=== PATIENT | female | born 1955 | race Caucasian/White ===

== ENCOUNTER 2020-11-05 11:58 | Emergency (ER) | payer OTHER ==
[~2020-11-05 11:58] MED LIST: CELEXA 40MG TAB40 MG PO; CRESTOR5 MG PO; ELAVIL25 MG PO; RIZATRIPTAN10 M1 PO; SYNTHROID50 MCG PO; TOPIRAMATE ER50 MG PO
[2020-11-05 13:09] LABS: BASOPHIL 0.7 % (0-2); EOSINOPHIL 2.7 % (0-7); HGB 12.7 g/dl (12.5-16.0); LYMPHOCYTE 32.4 % (15-48); MCH 29.7 pg (25.0-31.0); MCHC 33.4 g/dL (32.0-36.0); MONOCYTE 8.4 % (0-12); MPV 12.3 fL (6.0-9.5); NEUTROPHIL 55.3 % (41-80); NRBC 0; PLT 139 K/uL (150-400); RBC 4.27 M/uL (4.20-5.40); RDW 12.7 % (11.5-14.0); WBC 5.5 K/uL (4.0-10.5)
[2020-11-05 13:28] LABS: ALBUMIN 3.5 g/dL (3.4-5.0); BILIRUBIN - TOTAL 0.3 mg/dL (0.2-1.0); BUN/CREAT RATIO (CALC) 17.8 RATIO; CREATININE 1.01 mg/dL (0.51-0.95); GLOBULIN (CALCULATION) 3.3 g/dL; TOTAL PROTEIN 6.8 g/dL (6.4-8.2)
[2020-11-05 13:38] LABS: LACTIC ACID 0.6 mmol/L (0.4-1.9)
[2020-11-05] MEDS ORDERED: BENTYL10 MG PO (14:34)
== END 2020-11-05 14:42 | disposition home or self-care (01) ==
LOC: FER 11:58
PROVIDERS: Emergency Medicine
DX: K62.5 Hemorrhage of anus and rectum (principal); R10.32 Left lower quadrant pain
CPT/HCPCS: 36415; 80053; 83605; 85025; 87040; Q9967

== ENCOUNTER → 2020-12-15 | Day surgery (SDC) | payer MEDICARE, OTHER ==
[~2020-12-15] MED LIST changes: +BENTYL10 MG PO
[2020-12-15 07:48] LABS: HCT 39.6 % (37.0-47.0); HGB 13.6 g/dl (12.5-16.0); MCHC 34.3 g/dL (32.0-36.0); MCV 87.2 fL (78.0-100.0); MPV 11.5 fL (6.0-9.5); RBC 4.54 M/uL (4.20-5.40); RDW 12.9 % (11.5-14.0); WBC 7.2 K/uL (4.0-10.5)
[2020-12-15 08:06] LABS: ALBUMIN 4.3 g/dL (3.4-5.0); BILIRUBIN - TOTAL 0.4 mg/dL (0.2-1.0); BUN/CREAT RATIO (CALC) 24.3 RATIO; CREATININE 1.03 mg/dL (0.51-0.95); GLOBULIN (CALCULATION) 3.4 g/dL; POTASSIUM 3.7 mmol/L (3.5-5.1); TOTAL PROTEIN 7.7 g/dL (6.4-8.2)
== END | disposition home or self-care (01) ==
LOC: FAS 07:21
PROVIDERS: Surgery
DX: K58.9 Irritable bowel syndrome, unspecified (principal); K63.89 Other specified diseases of intestine; G43.909 Migraine, unspecified, not intractable, without status migrainosus; E03.9 Hypothyroidism, unspecified; F32.9 Major depressive disorder, single episode, unspecified; Z79.899 Other long term (current) drug therapy; Z87.891 Personal history of nicotine dependence; Z86.010 Personal history of colon polyps; Z80.0 Family history of malignant neoplasm of digestive organs; Z20.822 Contact with and (suspected) exposure to COVID-19
CPT/HCPCS: 36415; 80053; 94667; J1100; J1610; J2704; J7120